=== PATIENT | female | born 1950 | race Caucasian/White ===

== ENCOUNTER → 2020-01-16 09:11 | Outpatient (CLI) | payer OTHER, MEDICARE, SELFPAY ==
[2020-01-16 09:19] LABS: Adenovirus,PCR Not Detected (NotDetected); Bordetella Pertussis Not Detected (NotDetected); Chlamydophila Pneumoniae, PCR Not Detected (NotDetected); Coronavirus 19, PCR Not Detected (NotDetected); Coronavirus 229E Not Detected (NotDetected); Coronavirus NL63 Not Detected (NotDetected); Coronavirus OC43 Not Detected (NotDetected); Coronovirus HKU1,PCR Not Detected (NotDetected); Human Metapneumovirus Not Detected (NotDetected); Influenza A, PCR Not Detected (NotDetected); Influenza AH1, 2009 Not Detected (NotDetected); Influenza AH1, PCR Not Detected (NotDetected); Influenza AH3,PCR Not Detected (NotDetected); Influenza B, PCR Not Detected (NotDetected); Mycoplasma Pneumoniae, PCR Not Detected (NotDected); Parainfluenza 1, PCR Not Detected (NotDetected); Parainfluenza 2, PCR Not Detected (NotDetected); Parainfluenza 3, PCR Not Detected (NotDetected); Parainfluenza 4, PCR Not Detected (NotDetected); Respiratory Syncytial Virus Not Detected (NotDetected); Rhinovirus/Enterovirus Not Detected (NotDetected)
== END ==
PROVIDERS: Visit Provider Internal Medicine Gastroenterology
DX: Z01.818 Encounter for other preprocedural examination (principal); R10.12 Left upper quadrant pain
CPT/HCPCS: 87581; 87633; 87798

== ENCOUNTER 2020-01-18 09:18 | Day surgery (SDC) | payer OTHER, MEDICARE, SELFPAY ==
--- NOTE | 2020-01-13 15:26 | SUR.PREOP ---
01/13/2020 @ 1527--PHONE CALL MADE TO PATIENT. PATIENT UNDERSTANDS THAT LAB WORK AND COVID TESTING NEEDS TO BE COMPLETED @ 1000 ON 01/16/2020. PATIENT UNDERSTANDS IF LAB WORK AND COVID-19 TESTS ARE NOT COMPLETED BY 12PM ON THAT DATE, THE SURGERY SCHEDULED WILL BE CANCELLED AND RESCHEDULED FOR ANOTHER TIME.
[2020-01-15 15:08] VITALS: BMI 28.8
[2020-01-18] VITALS (7 sets, daily range): BP systolic 113–192; BP diastolic 71–87; PULSE 62–72; RESP 16–18; TEMP 36.2–36.8; O2SAT 96–100
--- NOTE | 2020-01-18 10:07 | P.PCN_ITS ---
[facility] Procedure Note Procedure Note:: Upper Endoscopy Procedure Report: Esophagogastroduodenoscopy with cold biopsies Endoscopost: Mariusz Spence II, MD Referring Physician: Kleber Tirado MD/Yakov Chester MD Date of Procedure: January 18, 2020 Equipment: Olympus GIF 180 standard upper endoscope Sedation: MAC sedation Indications: Mrs. 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 There was fistulization to the small bowel. The patient underwent chemotherapy followed by surgery and she did have a subtotal gastrectomy. She had perioperative chemotherapy (FLOT) with last treatment in August 2018. The patient has had some left upper abdominal pain. She had an upper endoscopy with me in June 2019 and had normal appearance with normal gastrojejunal anastomosis. There was no evidence of any recurrence. The patient does report having more bloating and pain from the left upper quadrant to the left lower quadrant. She has had more bowel irregularity with small caliber stools. She is on lactulose and Konsyl. She has had some frequent nausea for which she takes Zofran. She reports no melena, rectal bleeding or weight loss. She reports no dysphagia or vomiting. She reports no heartburn or reflux. Her last colonoscopy was May 2018 at which time she had a diminutive transverse colon polyp and left-sided diverticulosis. The patient did have a CT scan/PET scan in July 2019 and there was stable postsurgical changes from her prior gastric resection with gastrojejunostomy and no evidence of any metastasis or recurrence. Procedure: Prior to the procedure, a history and physical exam was performed, and patient's medications and allergies were reviewed. The risks, benefits and alternatives of the sedation and procedure were discussed with the patient. All questions were answered and informed consent was obtained. The patient was brought to the procedure room. Patient identification and proposed procedure were verified by the physician and the nurse. The patient was placed in a left lateral decubitus position and the scope was passed under direct vision. Throughout the procedure, the patient's blood pressure, pulse, and oxygen saturations were monitored continuously. The upper GI endoscopy was accomplished without difficulty. The patient tolerated the procedure well. Findings: The scope was passed directly into the upper esophagus and advanced to the gastrojejunostomy anastomosis and into the efferent limb. The scope was advanced 30 to 40 cm into this limb and there were no mucosal abnormalities. The scope was withdrawn and the afferent blind loop was normal. The gastrojejunal anastomosis was widely patent. There were no mucosal abnormalities identified. Biopsies were taken on both sides of the anastomosis. There were no anastomotic ulcerations. The remaining gastric mucosa appeared grossly normal. There was no hiatal hernia. The scope was then withdrawn into the esophagus. The remainder of the esophageal mucosa was normal. Impression: 1. Normal upper endoscopy status post prior subtotal gastrectomy with normal gastrojejunal anastomosis (subsequent to signet ring adenocarcinoma) Plan: I will follow-up the anastomotic biopsies. The patient has had no recurrence. There was no clear source for the patient's left upper quadrant abdominal pain/left lower quadrant abdominal pain. I will proceed with colonoscopy. I will discuss the findings with patient and family.
--- NOTE | 2020-01-18 10:21 | P.PCN_ITS ---
[facility] Procedure Note Procedure Note:: Colonoscopy Procedure Report: Colonoscopy Endoscopist: Mariusz Spence II, MD Referring physician: Kleber Tirado MD/Yakov Chester MD Date of Procedure: January 18, 2020 Equipment: Olympus 180 variable stiffness pediatric colonoscope Sedation: MAC sedation Indication: Mrs. 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 There was fistulization to the small bowel. The patient underwent chemotherapy followed by surgery and she did have a subtotal gastrectomy. She had perioperative chemotherapy (FLOT) with last treatment in August 2018. The patient has had some left upper abdominal pain. She had an upper endoscopy with ak in June 2019 and had normal appearance with normal gastrojejunal anastomosis. There was no evidence of any recurrence. The patient does report having more bloating and pain from the left upper quadrant to the left lower quadrant. She has had more bowel irregularity with small caliber stools. She is on lactulose and Konsyl. She has had some frequent nausea for which she take s Zofran. She reports no melena, rectal bleeding or weight loss. She reports no dysphagia or vomiting. She reports no heartburn or reflux. Her last colonoscopy was May 2018 at which time she had a diminutive transverse colon polyp and left-sided diverticulosis. The patient did have a CT scan/PET scan in July 2019 and there was stable postsurgical changes from her prior gastric resection with gastrojejunostomy and no evidence of any metastasis or recurrence. Procedure: Prior to the procedure, a history and physical exam was performed, and patient's medications and allergies were reviewed. The risks, benefits and alternatives of the sedation and procedure were discussed with the patient. All questions were answered and informed consent was obtained. The patient was brought to the procedure room. Patient identification and proposed procedure were verified by the physician and the nurse. The patient was placed in a left lateral decubitus position and the scope was passed under direct vision. Throughout the procedure, the patient's blood pressure, pulse, and oxygen saturations were monitored continuously. The colonoscopy was accomplished without difficulty. The patient tolerated the procedure well. Findings: On digital rectal examination there was normal rectal tone. There were no external hemorrhoids. The colonoscope was introduced through the anal canal t o the rectum and advanced to the cecum. The ileocecal valve and appendiceal orifice were identified. The scope was advanced a short distance into the ileum which appeared grossly normal. The scope was then withdrawn into the colon. The cecum, ascending and transverse colon and mucosa were grossly normal. There were scattered diverticuli throughout the descending and sigmoid colon (LEFT colon). The rectum itself was normal. Upon retroflexion within the rectum there were grade 1 internal hemorrhoids. The preparation was excellent throughout with Gaylord Preparation Score of 9. The cecal time was 10 minutes. Impression: 1. Left-sided diverticulosis 2. Grade 1 internal hemorrhoids Plan: I do feel that the patient's left-sided abdominal pain is from splenic flexure syndrome and spastic diverticular disease. This is likely due to obstipation. We will discuss treatment options. I am not convinced that she will require any further surveillance colonoscopy.
== END 2020-01-18 11:35 | disposition home or self-care (01) ==
LOC: OUTP 09:24
PROVIDERS: PCP Emergency Medicine; Visit Provider Internal Medicine Gastroenterology
PROC: 0DJ08ZZ Inspection of Upper Intestinal Tract, Via Natural or Artificial Opening Endoscopic (ICD-10-PCS; CPT 43235; principal; 2020-01-18 11:00)
DX: R10.12 Left upper quadrant pain (principal); D64.9 Anemia, unspecified; Z88.2 Allergy status to sulfonamides; Z88.1 Allergy status to other antibiotic agents; E03.9 Hypothyroidism, unspecified; Z79.899 Other long term (current) drug therapy; Z85.028 Personal history of other malignant neoplasm of stomach; Z90.3 Acquired absence of stomach [part of]; Z86.010 Personal history of colon polyps; K57.30 Diverticulosis of large intestine without perforation or abscess without bleeding; K64.0 First degree hemorrhoids
CPT/HCPCS: 43239; 45378

== ENCOUNTER 2020-12-19 09:20 | Day surgery (SDC) | payer MEDICARE, OTHER, SELFPAY ==
[2020-12-19 11:10] LABS: Coronavirus 19 IgG Antibody Positive (Negative); Coronavirus 19 IgM Antibody Negative (Negative)
[2020-12-19 11:58] VITALS: BP 170/82; PULSE 65; RESP 18; TEMP 36.6; O2SAT 99; BMI 28.3
[2020-12-19 12:14] LABS: POC Glucose,Bedside 91 (70-110)
[2020-12-19 13:39] VITALS: O2SAT 99
--- NOTE | 2020-12-19 13:46 | P.PN_ITS ---
[facility] Anesthesia Checklist - Structural Data Admitted From: Home Planned Operative Procedure/s: flex/sig Consent for Planned Operative Procedure(s) Verified: Yes - Airway Assessment C-Spine Mobility Assessed: Yes TMJ Mobility Assessed: Yes Dentition: Good Dentition - Neurological Assessment Level of Consciousness: Awake, Alert, Appropriate - Anesthesia Plan Anesthesia Risk discussed: Yes Anesthesia Plan: Verified ASA Class: III Anesthesia Type: MAC [facility] History I have reviewed the patient's past medical history: Yes Medical History: Reports:: Cancer (STOMACH 85% STOMACH REMOVED 18 SMALL INTESTINES REMOVED), Diabetes Mellitus Type 2, Hyperlipidemia, Hypertension, Myocardial Infarction Denies:: Diabetes Mellitus Type 1, Internal Pacemaker, MRSA, Seizures *Have you ever received a pneumonia vaccine?: Yes *Have you received a flu vaccine this season?: Yes Anesthesia experience/problems:: none Laterality Cases: Bilateral: Cataract Other Surgeries: Yes: Cardiac Catheterization. No: Pacemaker Amputation: No - *Social History Last grade of school completed: Some college Smoking Status: Never smoker Alcohol Intake: never Substance Use Type: denies use *Occupational Status:: retired Housing: house Household Members: spouse *Travel in the last 8 weeks: None Family Hx:: Cancer, Diabetes
--- NOTE | 2020-12-19 13:54 | P.PCN_ITS ---
[facility] Procedure Note Procedure Note:: Flexible Sigmoidoscopy Procedure Report: Sigmoidoscopy Endoscopist: Mariusz Spence II, MD Referring physician: CARRIE Tariq/Yakov Chester MD Date of Procedure: December 19, 2020 Equipment: Olympus 180 variable stiffness pediatric colonoscope Sedation: MAC sedation Indication: Mrs. Arce is a 70-year-old female with excruciating rectal pain. The patient does report proctalgia/rectal pain that occurs after defecation daily. She has soft bowel movements. The patient does have the prior history of signet ring cell gastric adenocarcinoma diagnosed in May 2018. This did fistulized to the small bowel. She had chemotherapy and surgery with subtotal gastrectomy and has remained in remission. She is being followed by Dr. Yakov Chester at the [facility]. The patient did have surveillance PET scans that have been normal. Her last upper endoscopy in January 2020 showed normal upper digestive tract anatomy with subtotal gastrectomy and normal gastrojejunal anastomosis. The patient also had a fairly normal colonoscopy at that time. She does have a history of some obstipation and does take MiraLAX plus Konsyl once or twice daily. She presently feels as if she evacuates without excessive wiping. She reports no rectal bleeding or weight loss. Procedure: Prior to the procedure, a history and physical exam was performed, and patient's medications and allergies were reviewed. The risks, benefits and alternatives of the sedation and procedure were discussed with the patient. All questions were answered and informed consent was obtained. The patient was brought to the procedure room. Patient identification and proposed procedure were verified by the physician and the nurse. The patient was placed in a left lateral decubitus position and the scope was passed under direct vision. Throughout the procedure, the patient's blood pressure, pulse, and oxygen saturations were monitored continuously. The colonoscopy was accomplished without difficulty. The patient tolerated the procedure well. Findings: On digital rectal examination there was normal rectal tone and there were no perianal fistulas or anal fissures. The scope was then inserted through the anal canal into the rectum and advanced to 50 cm. Upon withdrawal, there was some diverticulosis identified in the descending and sigmoid colon. Upon retroflexion within the rectum there were grade 1-2 internal hemorrhoids. There were no polyps or other mucosal abnormalities. Impression: 1. Left-sided diverticulosis 2. 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 For infrequent attacks, we sometimes use topical nitroglycerin or albuterol inhaled. For long-term chronic pain, we do sometimes use clonidine and if not improved, I would then consider biofeedback therapy and possibly Botox. 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 A nerve block can be successful in most circumstances. We will initially start with the clonidine treatment (clonidine oral 0.1 mg p.o. twice daily).
[2020-12-19 14:00] VITALS: BP 124/69; PULSE 59; RESP 12; TEMP 36.6; O2SAT 96
[2020-12-19 14:10] VITALS: BP 157/88; PULSE 58; RESP 16; O2SAT 97
[2020-12-19 14:20] VITALS: BP 167/85; PULSE 71; RESP 16; O2SAT 98
[2020-12-19 14:30] VITALS: BP 161/82; PULSE 66; RESP 16; TEMP 36.6; O2SAT 99
== END 2020-12-19 14:30 | disposition home or self-care (01) ==
PROVIDERS: Visit Provider Internal Medicine Gastroenterology
PROC: 0DJD8ZZ Inspection of Lower Intestinal Tract, Via Natural or Artificial Opening Endoscopic (ICD-10-PCS; CPT 45330; principal; 2020-12-19 14:30)
DX: K57.30 Diverticulosis of large intestine without perforation or abscess without bleeding (principal); K64.0 First degree hemorrhoids; Z85.00 Personal history of malignant neoplasm of unspecified digestive organ; Z90.49 Acquired absence of other specified parts of digestive tract; E11.9 Type 2 diabetes mellitus without complications; E78.5 Hyperlipidemia, unspecified; I10 Essential (primary) hypertension; I25.2 Old myocardial infarction; Z80.9 Family history of malignant neoplasm, unspecified; Z83.3 Family history of diabetes mellitus; Z88.2 Allergy status to sulfonamides; Z88.5 Allergy status to narcotic agent
CPT/HCPCS: 45330; 36415; 82962; 86328